=== PATIENT | male | born 1930 | race Caucasian/White ===

== ENCOUNTER 2016-07-24 12:55 | Inpatient (IN) | payer MEDICARE ==
[~2016-07-24] VITALS: Ht 165.1 cm; Wt 69.7 kg
[~2016-07-24 12:55] MED LIST: BENA40TA2 PO; DOCU-27 PO; GABA-586 PO; GLIM1TAB2 PO; GLYB5TAB3 PO; HYDR25CA PO; IPRA3AMP23 IH; LOVA40TA2 PO; METO100T11 PO; TAMS0.4C97 PO
[2016-07-24] MEDS ORDERED: IPRATRPIUM/ALBUTEROL 0.5/2.5MG 3 ML NEBU. NEB ONE (13:15)
[2016-07-24] MEDS ORDERED: methylPREDNISolone SOD SUCC PF 125 MG/2 ML VIAL. IV ONE (13:15)
--- NOTE | 2016-07-24 13:47 | PHYS DOC ---
Past Medical History Past Medical History: Cancer, CHF, Diabetes-Type II, Hypertension Additional Past Surgical Histo: Endoscopy Alcohol Use: None Drug Use: None Adult General Chief Complaint Chief Complaint: SHORTNESS OF BREATH HPI HPI Patient is a 85 year old male brought to the ED from home by EMS with the complaint of short of air. Patient wears oxygen 2 L at home and does have COPD. States he has been very short of breath over the past couple of days. His last nebulizer treatment at home was yesterday because he was too short of breath to walk across the room and get one. He denies recent fever. Cough is baseline. Ankle edema is baseline for him. He said he had a Doppler of his legs recently and found to have no DVT. PCP Dr. Danis Holman Review of Systems Review of Systems Constitutional: Denies fever or chills [] Eyes: Denies change in visual acuity, redness, or eye pain [] HENT: Denies nasal congestion or sore throat [] Respiratory: As in history of present illness Cardiovascular: No chest pain, edema is chronic and baseline GI: Denies abdominal pain, nausea, vomiting, bloody stools or diarrhea [] : Denies dysuria or hematuria [] Musculoskeletal: Denies back pain or joint pain [] Integument: Denies rash or skin lesions [] Neurologic: Denies headache, focal weakness or sensory changes [] Current Medications Current Medications Current Medications Medications (Trade) Dose Ordered Sig/David Start Time Stop Time Status Last Admin Dose Admin Albuterol/ Ipratropium (Duoneb) 3 ml 1X ONCE 07/24/16 13:15 07/24/16 13:16 DC 07/24/16 13:23 3 ML Methylprednisolone Sodium Succinate (Solu-Medrol 125mg Vial) 60 mg 1X ONCE 07/24/16 13:15 07/24/16 13:16 DC 07/24/16 13:35 60 MG Allergies Allergies Allergies Coded Allergies Type Severity Reaction Last Updated Verified No Known Drug Allergies 06/07/13 No Physical Exam Physical Exam Constitutional: Well developed, well nourished, alert, mentating normally, brought in on O2 4 L nasal cannula by EMS HENT: Normocephalic, atraumatic, bilateral external ears normal, nose normal. [ ] Eyes: conjunctiva normal, no discharge. [] Neck: Normal range of motion, no stridor. [] Cardiovascular:Heart rate regular rhythm, no murmur [] Lungs & Thorax: Breath sounds moderately decreased, equal throughout, prolonged expiratory phase, expiratory wheezes throughout Abdomen: Bowel sounds normal, soft, no tenderness, no masses, no pulsatile masses. [] Skin: Warm, dry, no erythema, no rash. [] Extremities: No tenderness, no cyanosis, no clubbing, ROM intact, bilateral ankle edema 1-2+ Neurologic: Alert and oriented X 3, normal motor function, normal sensory function, no focal deficits noted. [] Current Patient Data Vital Signs Vital Signs Date Time Temp Pulse Resp B/P Pulse Ox O2 Delivery O2 Flow Rate FiO2 07/24/16 13:37 53 16 146/65 97 Nasal Cannula 4 07/24/16 12:55 98.4 98.4 Lab Values Laboratory Tests Test 07/24/16 13:30 White Blood Count 3.5x10^3/uL (4.0-11.0) L Red Blood Count 3.40x10^6/uL (4.30-5.70) L Hemoglobin 9.5g/dL (13.0-17.5) L Hematocrit 30.7% (39.0-53.0) L Mean Corpuscular Volume 90fL (79-100) Mean Corpuscular Hemoglobin 28pg (25-35) Mean Corpuscular Hemoglobin Concent 31g/dL (31-37) Red Cell Distribution Width 16.3% (11.5-14.5) H Platelet Count 63x10^3/uL (140-400) L Neutrophils (%) (Auto) 80% (31-73) H Lymphocytes (%) (Auto) 8% (24-48) L Monocytes (%) (Auto) 9% (0-9) Eosinophils (%) (Auto) 2% (0-3) Basophils (%) (Auto) 0% (0-3) Neutrophils # (Auto) 2.8x10^3uL (1.8-7.7) Lymphocytes # (Auto) 0.3x10^3/uL (1.0-4.8) L Monocytes # (Auto) 0.3x10^3/uL (0.0-1.1) Eosinophils # (Auto) 0.1x10^3/uL (0.0-0.7) Basophils # (Auto) 0.0x10^3/uL (0.0-0.2) Sodium Level 146mmol/L (136-145) H Potassium Level 4.9mmol/L (3.5-5.1) Chloride Level 105mmol/L (98-107) Carbon Dioxide Level 38mmol/L (21-32) H Anion Gap 3 (6-14) L Blood Urea Nitrogen 14mg/dL (8-26) Creatinine 0.9mg/dL (0.7-1.3) Estimated GFR (Cockcroft-Gault) 80.0 BUN/Creatinine Ratio 16 (6-20) Glucose Level 111mg/dL (70-99) H Calcium Level 9.0mg/dL (8.5-10.1) Total Bilirubin 1.1mg/dL (0.2-1.0) H Aspartate Amino Transferase (AST) 30U/L (15-37) Alanine Aminotransferase (ALT) 32U/L (16-63) Alkaline Phosphatase 150U/L (46-116) H Creatine Kinase 96U/L (39-308) Creatine Kinase MB (Mass) 3.9ng/mL (0.0-3.6) H Creatine Kinase MB Relative Index 4.1% (0-4) H Troponin I Quantitative < 0.017ng/mL (0.000-0.055) UL-Bxi-R-Type Natriuretic Peptide 905pg/mL (0-449) H Total Protein 6.8g/dL (6.4-8.2) Albumin 2.7g/dL (3.4-5.0) L Albumin/Globulin Ratio 0.7 (1.0-1.7) L Laboratory Tests 07/24/16 13:30 Laboratory Tests 07/24/16 13:30 EKG EKG 12-lead EKG read by me. Sinus rhythm. Heart rate 61. Right bundle branch block. There are no acute ST or T wave changes indicative of ischemia or infarction. No STEMI. 1315 [] Radiology/Procedures Radiology/Procedures Portable chest x-ray read by me. Right lower lobe infiltrate and probable left lower lobe infiltrate. [] Course & Med Decision Making Course & Med Decision Making Pertinent Labs and Imaging studies reviewed. (See chart for details) 85-year-old male with COPD presents by EMS was short of air. He was given a nebulized DuoNeb treatment. His oxygen was turned up from 2-3 to maintain his O2 sats above 90%. He remained somewhat dyspneic after his DuoNeb and increased oxygen. He was given IV Solu-Medrol. Chest x-ray shows a an infiltrate. Blood cultures were ordered and Levaquin was started. Recheck patient [id number]. Patient is sitting up eating lunch wearing 3 L nasal cannula. He is slightly dyspneic with talking but is able to eat. I discussed the plan for admission, IV antibiotics, frequent DuoNeb's, IV steroids. He is agreeable to that plan. I discussed the patient with Dr. Danis Holman who will admit him. I wrote bridge orders. [] Dragon Disclaimer Dragon Disclaimer This electronic medical record was generated, in whole or in part, using a voice recognition dictation system. Departure Departure Impression: Primary Impression: COPD exacerbation Additional Impression: Community acquired pneumonia Disposition: 09 ADMITTED INPATIENT Admitting Physician: Danis Holman Condition: STABLE Referrals: DANIS HOLMAN MD (PCP) Problem Qualifiers RAMONE MACEDO MD Jul 24, 2016 13:47
[2016-07-24 13:54] LABS: BASO % 0 % (0-3); EOS % 2 % (0-3); HEMATOCRIT 30.7 % (39.0-53.0); HEMOGLOBIN 9.5 g/dL (13.0-17.5); LYMPH # 0.3 x10^3/uL (1.0-4.8); LYMPH % 8 % (24-48); MEAN CORPUSCULAR HEMOGLOBIN 28 pg (25-35); MEAN CORPUSCULAR HGB CONC 31 g/dL (31-37); MEAN CORPUSCULAR VOLUME 90 fL (79-100); MONO % 9 % (0-9); NEUT % 80 % (31-73); PLATELET COUNT 63 x10^3/uL (140-400); RED CELL DISTRIBUTION WIDTH 16.3 % (11.5-14.5); WHITE BLOOD COUNT 3.5 x10^3/uL (4.0-11.0)
[2016-07-24 13:57] LABS: CREATININE 0.9 mg/dL (0.7-1.3); POTASSIUM 4.9 mmol/L (3.5-5.1)
[2016-07-24 14:03] LABS: ALBUMIN 2.7 g/dL (3.4-5.0); ALBUMIN/GLOBULIN RATIO 0.7 (1.0-1.7); TOTAL BILIRUBIN 1.1 mg/dL (0.2-1.0); TOTAL PROTEIN 6.8 g/dL (6.4-8.2)
[2016-07-24 14:11] LABS: CKMB INDEX 4.1 % (0-4); CKMB MASS 3.9 ng/mL (0.0-3.6)
--- NOTE | 2016-07-24 15:13 | RAD ---
PORTABLE CHEST 1V Clinical Indication: soa 12 Comparison: July 22, 2015. Technique: Upright portable AP view of the chest is obtained. Findings: There are bibasilar opacities present, right greater than left. Mild interstitial opacities are also suggested within the upper lungs, which may be a component of underlying fibrosis versus overlying edema or infiltrate mild cardiomegaly appears stable. No pneumothorax is seen. Visualized osseous structures and overlying soft tissues demonstrate no acute interval change.. IMPRESSION: Bilateral opacities, may represent infiltrate or edema, underlying fibrosis also considered.
[2016-07-24] MEDS: IPRATRPIUM/ALBUTEROL 0.5/2.5MG 3 ML NEBU. NEB SCH ×2 (15:52→20:52)
[2016-07-24 15:54] VITALS: BP 139/50
[2016-07-24 17:11] VITALS: BP 139/50
[2016-07-24 19:00] VITALS: BP 126/53
[2016-07-24 22:54] VITALS: BP 119/49
[2016-07-25 02:24] VITALS: BP 117/64
[2016-07-25] MEDS: IPRATRPIUM/ALBUTEROL 0.5/2.5MG 3 ML NEBU. NEB SCH ×6 (06:51→17:56)
[2016-07-25 07:00] VITALS: BP 150/58
--- NOTE | 2016-07-25 07:30 | PDOC ---
Provider Note Provider Note [id number] acute on chronic resp fail abnl cxr acute bronchitis vs pneumonia ae of copd see orders TIFFANIE MEJIA MD Jul 25, 2016 07:29
[2016-07-25] MEDS ORDERED: HYDROXYZINE PAMOATE 25 MG CAPSULE PO PRN (08:15)
[2016-07-25] MEDS ORDERED: GLIMEPIRIDE 2 MG TABLET. PO SCH (08:30)
[2016-07-25] MEDS: INSULIN ASPART 300 UNITS/3 ML INSULN.PEN SQ SCH ×3 (08:30→16:48)
--- NOTE | 2016-07-25 08:37 | PDOC ---
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 of MM, results NA- now has mild pancytopenia, high globulin- will do light chain, immunofixation, repeat ct chest- [id number] OLLIE ANGELES MD Jul 25, 2016 08:37
[2016-07-25] MEDS: methylPREDNISolone SOD SUCC PF 40 MG/ML VIAL. IV SCH ×2 (08:48→20:37)
--- NOTE | 2016-07-25 08:53 | CONS ---
DATE OF CONSULTATION: 07/25/2016 I was asked to see this 85-year-old gentleman for [id number] respiratory failure, acute exacerbation of chronic obstructive pulmonary disease, acute bronchitis versus pneumonia. HISTORY OF PRESENT ILLNESS: He has history of 24-rwpo-pamf smoking, stopped smoking 5 years ago. He has COPD and he is on oxygen 2 liters per minute via nasal cannula continuously. He has had increased shortness of breath for the past few days. He has cough with white sputum production. He is a poor historian. He denies chest pain. He has had wheezing. He has runny nose, but denies gastroesophageal reflux symptoms. ALLERGIES: No known drug allergies. MEDICATIONS: The patient was given Solu-Medrol, DuoNeb and antibiotic in the Emergency Room. SOCIAL HISTORY: History of 20-rdiu-yjzf smoking, stopped smoking 5 years ago. FAMILY HISTORY: Positive for hypertension. PAST MEDICAL HISTORY: COPD, chronic respiratory failure, CHF, diabetes mellitus and hypertension. REVIEW OF SYSTEMS: As mentioned as above. His urine has been darker. Other systems are otherwise negative. PHYSICAL EXAMINATION: GENERAL: This is a well-developed gentleman. VITAL SIGNS: His O2 saturation on 4 liters of oxygen is 96%, respiratory rate 20, heart rate 82, blood pressure 160/90, temperature 98.6. HEENT: Normocephalic, atraumatic. Pupils equal, round, reactive to light. Throat is clear. Nose is clear. NECK: There is no JVD, lymphadenopathy or thyromegaly. CARDIOVASCULAR: Regular rate and rhythm. PMI is not displaced. CHEST: Inspection is normal. LUNGS: There are bibasilar crackles end expiratory wheezing. ABDOMEN: Soft. Bowel sounds are good. There is no mass. EXTREMITIES: There is trace edema. LYMPHATICS: There is no lymphadenopathy. SKIN: Chronic changes. NEUROLOGIC: He is alert. LABORATORY DATA: I reviewed the following lab data. Chest x-ray shows bilateral infiltrate, mostly right lower lobe infiltrate. Sodium 146, potassium 4.9, chloride 105, CO2 of 38, glucose 111, BUN 14, creatinine 0.9. Troponin less than 0.01. BNP 905. Total bili 1.1. AST 30, ALT 32, alkaline phosphatase 150. IMPRESSION: 1. Acute on chronic respiratory failure, multifactorial in etiology. 2. Acute exacerbation of chronic obstructive pulmonary disease. 3. Acute bronchitis versus pneumonia. 4. ?UTI. 5. Diabetes mellitus. 6. Hypertension. PLAN AND RECOMMENDATIONS: 1. Titrate FiO2 to keep O2 saturation 92%. 2. Start bronchodilator. 3. Start Levaquin 500 mg iv daily. 4. Urine micro and culture. 5. Start Solu-Medrol 40 mg IV every 12 hours. 6. Lovenox for DVT prophylaxis. 7. Protonix for stress ulcer prophylaxis. 8. Monitor respiratory status very closely. 9. The findings and recommendations were discussed with the patient and RN. I have answered all of the patient's questions. He understood and agreed to proceed with the plan. Thank you very much for allowing me to participate in care of this very nice gentleman. Alessandro WRIGHT JOB#: [id number] / [id number] KIRSTIE
[2016-07-25] MEDS: GABAPENTIN 300 MG CAPSULE. PO SCH ×3 (08:54→20:37)
[2016-07-25] MEDS: METOPROLOL SUCC 24HR ER 100 MG TAB.ER.24H. PO SCH (08:55)
[2016-07-25] MEDS: DOCUSATE SODIUM 100 MG CAPSULE. PO SCH (08:55)
[2016-07-25] MEDS: TAMSULOSIN 0.4 MG CAP.ER.24H. PO SCH (08:55)
[2016-07-25] MEDS ORDERED: BENAZEPRIL HCL 40 MG PO SCH (09:00)
--- NOTE | 2016-07-25 09:21 | HP ---
ADMIT DATE: CHIEF COMPLAINT: Shortness of breath. HISTORY OF PRESENT ILLNESS: An 85-year-old white male with known COPD, came in with increasing shortness of breath and mild hypoxia. He had low grade fever and chest x-ray showed evidence of possible right lower lobe pneumonia. He is not able to provide good history. He is somewhat confused at this time. 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 Peña. Last CT scan that I can find record that was 2013 and was felt to be unremarkable and no known recurrence since then. In 2013 he had a bone marrow analysis for the question of multiple myeloma, but the results are not available through this record and apparently it was not found to have myeloma. This test was done because of high globulin fraction and low platelets, both of which are still present. PAST MEDICAL HISTORY: MEDICATIONS: Listed per the chart including metoprolol and benazepril, but did not know how compliant he is. ALLERGIES: No known drug allergies. Other serious known medical problems except for BPH. He was treated for C. diff at [facility] about 2-3 months ago with no recurrence known since then. FAMILY HISTORY: Unremarkable. SOCIAL HISTORY: Did not know if he is living with himself ____ has family in the area as he is not able to provide a good history at this time. REVIEW OF SYSTEMS: No other known problems. OBJECTIVE: ENT: All within normal limits except for mild pallor. NECK: No bruits, nodes, masses or thyroid enlargement. LUNGS: Decreased breath sounds. No wheezing or tachypnea, hyperresonant lungs bilaterally to percussion. CARDIOVASCULAR: Regular rate. No irregular beat or murmur. ABDOMEN: Soft, benign and nontender. EXTREMITIES: Good radial pulses, decreased pedal pulses. No edema. SKIN: Skin turgor appears to be decreased. NEUROLOGIC: Physiologic, irritable, but nonfocal, oriented x 4. ASSESSMENT: 1. Chronic obstructive pulmonary disease with secondary exacerbation, likely secondary to low grade pneumonia. 2. 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 Last CT after radiation therapy in 2013. 3. Pancytopenia, which appears to be mildly progressive with lower white count and anemia now, which was ____ present 2 years ago. Multifactorial must consider indolent multiple myeloma or myelodysplastic syndrome. 4. High globulin levels again a question of multiple myeloma. 5. Poor protein calorie state with malnutrition, mild present. PLAN: Continue Rocephin and we will hold steroids for now as he is low diabetic. Light chain analysis, immunofixation, CT scan ordered and he is a DNR. OLLIE ANGELES MD DR: SHEA/markie JOB#: [id number] / [id number]
--- NOTE | 2016-07-25 09:48 | EKG ---
[facility] [address] [place] [address] Test Date: 2016-07-24 Test Time: 13:15:18 Pat Name: DANIELLE RÍOS Department: Room: Gender: M Dental Professional: : 1930 Requested By: RAMONE MACEDO Order Number: [id number] Reading MD: Measurements Intervals [place] Rate: 61 P: 41 MT: 178 QRS: -27 QRSD: 128 T: 62 QT: 446 QTc: 455 Interpretive Statements SINUS RHYTHM ATRIAL PREMATURE COMPLEX(ES) RIGHT BUNDLE BRANCH BLOCK ABNORMAL ECG RI6.01 No previous ECG available for comparison
[2016-07-25 11:00] VITALS: BP 143/45
[2016-07-25 15:00] VITALS: BP 137/46
[2016-07-25] MEDS ORDERED: CEFTRIAXONE SODIUM 1 GM in IV NORMAL SALINE 50ML 50 ML IV SCH (15:30)
[2016-07-25 19:00] VITALS: BP 165/59
[2016-07-25 19:05] LABS: BILIRUBIN,URINE NEGATIVE (NEG); GLUCOSE,URINE NEGATIVE (NEG); NITRITE,URINE NEGATIVE (NEG); PROTEIN,URINE 30 mg/dL (NEG-TRACE); UROBILINOGEN,URINE 0.2 mg/dL (0.2 mg/dL)
[2016-07-25 19:21] LABS: BACTERIA,URINE 0 /HPF (0-FEW); WBC,URINE 0 /HPF (0-4)
[2016-07-25] MEDS: ATORVASTATIN CALCIUM 10 MG TABLET. PO SCH (20:37)
[2016-07-25 23:00] VITALS: BP 122/49
[2016-07-26 07:00] VITALS: BP 135/68
[2016-07-26] MEDS ORDERED: CONTRAST GIVEN MC PRN (07:00)
[2016-07-26] MEDS: IPRATRPIUM/ALBUTEROL 0.5/2.5MG 3 ML NEBU. NEB SCH ×4 (07:12→20:18)
[2016-07-26] MEDS ORDERED: IOHEXOL 300 MG/ML 75 ML VIAL IV ONE (07:15)
[2016-07-26] MEDS: INSULIN ASPART 300 UNITS/3 ML INSULN.PEN SQ SCH ×3 (08:00→18:06)
--- NOTE | 2016-07-26 08:15 | PDOC ---
Provider Note Provider Note vss, no temp, feels better , no sputum- has bibasilar rales, only scant wheezes - ct pending re priod CA- labs re ? MM, pancytopenia pending as well- states he was in [facility] recently for "black styool" but unable to relate tests or etiolgy- at risk for bleed re low plats- will get mr from [facility], reduce steroids now , po 07/27 OLLIE ANGELES MD Jul 26, 2016 08:15
[2016-07-26] MEDS ORDERED: GLIMEPIRIDE 2 MG TABLET. PO SCH (08:30)
[2016-07-26] MEDS: METOPROLOL SUCC 24HR ER 100 MG TAB.ER.24H. PO SCH (09:03)
[2016-07-26] MEDS: GABAPENTIN 300 MG CAPSULE. PO SCH ×3 (09:04→20:48)
[2016-07-26] MEDS: TAMSULOSIN 0.4 MG CAP.ER.24H. PO SCH (09:04)
[2016-07-26] MEDS: DOCUSATE SODIUM 100 MG CAPSULE. PO SCH (09:04)
--- NOTE | 2016-07-26 09:05 | RAD ---
Indication history of small cell cancer. Radiation left upper lobe. Follow-up. Contrast imaging through the chest was performed. Approximately 75 cc of Omnipaque 300 was administered intravenously. Comparison is made to the most recent examination available December 26, 2013 Imaging through the upper abdomen shows no acute finding. Renal cysts are noted. There is a small amount of perihepatic and perisplenic fluid. The thoracic aorta appears unremarkable. There is coronary artery calcification. There is no significant hilar or mediastinal adenopathy. There are small to moderate bilateral pleural effusions. Some of the right pleural fluid may be loculated. There are interstitial changes in the left upper lobe which are likely postradiation induced and key account representative of fibrosis. There is a slightly lobulated 1.7 cm parenchymal mass in the left upper lobe suggesting either recurrent or primary neoplastic disease. IMPRESSION: 1.7 cm parenchymal mass in the left upper lobe suggesting either recurrent or primary neoplastic disease. Small to moderate bilateral pleural effusions some of the right pleural fluid may be loculated. Small amount of abdominal ascites PQRS Compliance Statement: One or more of the following individualized dose reduction techniques were utilized for this examination: 1. Automated exposure control 2. Adjustment of the mA and/or kV according to patient size 3. Use of iterative reconstruction technique
[2016-07-26] MEDS ORDERED: methylPREDNISolone SOD SUCC PF 40 MG/ML VIAL. IV SCH (10:00)
[2016-07-26 11:08] VITALS: BP 144/58
[2016-07-26 11:20] LABS: HEMATOCRIT 30.9 % (39.0-53.0); HEMOGLOBIN 9.9 g/dL (13.0-17.5); RED BLOOD COUNT 3.55 x10^6/uL (4.30-5.70); RED CELL DISTRIBUTION WIDTH 16.2 % (11.5-14.5); WHITE BLOOD COUNT 5.4 x10^3/uL (4.0-11.0)
[2016-07-26 15:01] VITALS: BP 131/58
--- NOTE | 2016-07-26 17:20 | PDOC ---
PULMONARY PROGRESS NOTES Subjective pt not more soa Vitals Vital Signs Date Time Temp Pulse Resp B/P Pulse Ox O2 Delivery O2 Flow Rate FiO2 07/26/16 15:15 95 Nasal Cannula 2.0 07/26/16 15:01 98.2 65 17 131/58 98.2 ROS: No Nausea, No Chest Pain, No Abdominal Pain, No Increase Cough General: Alert Lungs: Clear Cardiovascular: S1, S2 Abdomen: Soft Neuro Exam: Alert Extremities: No Edema Skin: Warm Labs Laboratory Tests Test 07/24/16 20:44 07/25/16 07:52 07/25/16 11:08 07/25/16 16:46 Glucose (Fingerstick) 169mg/dL (70-99) 156mg/dL (70-99) 91mg/dL (70-99) 88mg/dL (70-99) Test 07/25/16 18:45 07/25/16 20:55 07/26/16 07:16 07/26/16 11:16 Urine Collection Type Unknown Urine Color Yellow Urine Clarity Clear Urine pH 7.0 Urine Specific [place] 1.015 Urine Protein 30mg/dL (NEG-TRACE) Urine Glucose (UA) Negativemg/dL (NEG) Urine Ketones (Stick) Negativemg/dL (NEG) Urine Blood Negative (NEG) Urine Nitrite Negative (NEG) Urine Bilirubin Negative (NEG) Urine Urobilinogen Dipstick 0.2mg/dL (0.2 mg/dL) Urine Leukocyte Esterase Negative (NEG) Urine RBC 1-2/HPF (0-2) Urine WBC 0/HPF (0-4) Urine Bacteria 0/HPF (0-FEW) Urine Hyaline Casts Few/HPF Glucose (Fingerstick) 73mg/dL (70-99) 130mg/dL (70-99) White Blood Count 5.4x10^3/uL (4.0-11.0) Red Blood Count 3.55x10^6/uL (4.30-5.70) Hemoglobin 9.9g/dL (13.0-17.5) Hematocrit 30.9% (39.0-53.0) Mean Corpuscular Volume 87fL (79-100) Mean Corpuscular Hemoglobin 28pg (25-35) Mean Corpuscular Hemoglobin Concent 32g/dL (31-37) Red Cell Distribution Width 16.2% (11.5-14.5) Platelet Count 65x10^3/uL (140-400) Test 07/26/16 11:18 07/26/16 16:07 Glucose (Fingerstick) 99mg/dL (70-99) 171mg/dL (70-99) Laboratory Tests Test 07/25/16 18:45 07/25/16 20:55 07/26/16 07:16 07/26/16 11:16 Urine Collection Type Unknown Urine Color Yellow Urine Clarity Clear Urine pH 7.0 Urine Specific [place] 1.015 Urine Protein 30mg/dL (NEG-TRACE) Urine Glucose (UA) Negativemg/dL (NEG) Urine Ketones (Stick) Negativemg/dL (NEG) Urine Blood Negative (NEG) Urine Nitrite Negative (NEG) Urine Bilirubin Negative (NEG) Urine Urobilinogen Dipstick 0.2mg/dL (0.2 mg/dL) Urine Leukocyte Esterase Negative (NEG) Urine RBC 1-2/HPF (0-2) Urine WBC 0/HPF (0-4) Urine Bacteria 0/HPF (0-FEW) Urine Hyaline Casts Few/HPF Glucose (Fingerstick) 73mg/dL (70-99) 130mg/dL (70-99) White Blood Count 5.4x10^3/uL (4.0-11.0) Red Blood Count 3.55x10^6/uL (4.30-5.70) Hemoglobin 9.9g/dL (13.0-17.5) Hematocrit 30.9% (39.0-53.0) Mean Corpuscular Volume 87fL (79-100) Mean Corpuscular Hemoglobin 28pg (25-35) Mean Corpuscular Hemoglobin Concent 32g/dL (31-37) Red Cell Distribution Width 16.2% (11.5-14.5) Platelet Count 65x10^3/uL (140-400) Test 07/26/16 11:18 07/26/16 16:07 Glucose (Fingerstick) 99mg/dL (70-99) 171mg/dL (70-99) Medications Active Scripts Medications Dose Route/Sig Days Date Category Glimepiride 1 Mg Tablet 1 Mg PO DAILY 11/28/13 Reported Flomax (Tamsulosin Hcl) 0.4 Mg Cap.er.24h 0.4 Mg PO DAILY 06/07/13 Reported Metoprolol Succinate ( Xl ) (Metoprolol Succinate) 100 Mg Tab.er.24h 100 Mg PO DAILY 06/07/13 Reported Lovastatin 40 Mg Tablet 40 Mg PO HS 06/07/13 Reported Vistaril (Hydroxyzine Pamoate) 25 Mg Capsule 25 Mg PO HS PRN 06/07/13 Reported Gabapentin 300 Mg Capsule 300 Mg PO TID 06/07/13 Reported Duoneb 0.5 Mg-3 Mg/3 Ml Soln (Ipratropium/Albuterol Sulfate) 3 Ml Ampul.neb 3 Ml IH QID PRN 06/07/13 Reported Colace (Docusate Sodium) 100 Mg Capsule 100 Mg PO DAILY 06/07/13 Reported Benazepril Hcl 40 Mg Tablet 40 Mg PO DAILY 06/07/13 Reported Impression . 1. Acute on chronic respiratory failure, multifactorial in etiology. 2. Acute exacerbation of chronic obstructive pulmonary disease. 3. Acute bronchitis versus pneumonia. 4. ?UTI. 5. Diabetes mellitus. 6. Hypertension. 7. H/O small cell CA s/p XRT, INDIRA 8. New mass in INDIRA, possible recurrence vs new primary CT chest 1.7 cm parenchymal mass in the left upper lobe suggesting either recurrent or primary neoplastic disease. Small to moderate bilateral pleural effusions some of the right pleural fluid may be loculated. Small amount of abdominal ascites Plan . continue antibx will need rad onco conslut 02 ELIO Dial MD Jul 26, 2016 17:20
[2016-07-26 19:00] VITALS: BP 151/63
[2016-07-26] MEDS: ATORVASTATIN CALCIUM 10 MG TABLET. PO SCH (20:48)
[2016-07-26] MEDS: DEXTROSE 50% 25 GM / 50ML DISP.SYRIN. IV PRN ×2 (21:18→21:20)
[2016-07-26 23:00] VITALS: BP 107/40
[2016-07-27 05:48] LABS: HEMATOCRIT 31.3 % (39.0-53.0); HEMOGLOBIN 10.1 g/dL (13.0-17.5); RED BLOOD COUNT 3.59 x10^6/uL (4.30-5.70); RED CELL DISTRIBUTION WIDTH 16.5 % (11.5-14.5); WHITE BLOOD COUNT 6.2 x10^3/uL (4.0-11.0)
[2016-07-27 07:00] VITALS: BP 134/59
[2016-07-27] MEDS: IPRATRPIUM/ALBUTEROL 0.5/2.5MG 3 ML NEBU. NEB SCH ×3 (07:44→15:19)
--- NOTE | 2016-07-27 08:12 | PDOC ---
Provider Note Provider Note vss, no temp- glucose low despite steroids, a1c 5.3 so dc dm meds - wbc up, myeloma labs pending, platelets still low- mass INDIRA noted rad onc to see- po meds now OLLIE ANGELES MD Jul 27, 2016 08:12
[2016-07-27] MEDS ORDERED: LEVOFLOXACIN 250 MG TABLET. PO SCH (09:00)
[2016-07-27] MEDS ORDERED: PREDNISONE 20 MG TABLET PO SCH (09:00)
[2016-07-27] MEDS: TAMSULOSIN 0.4 MG CAP.ER.24H. PO SCH (09:22)
[2016-07-27] MEDS: GABAPENTIN 300 MG CAPSULE. PO SCH ×2 (09:22→15:31)
[2016-07-27] MEDS: METOPROLOL SUCC 24HR ER 100 MG TAB.ER.24H. PO SCH (09:23)
[2016-07-27] MEDS: DOCUSATE SODIUM 100 MG CAPSULE. PO SCH (09:25)
--- NOTE | 2016-07-27 10:39 | PDOC ---
PROGRESS NOTES Subjective Subjective Glen Canseco is known to us. 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 He received palliative external Radiation, in August-September 2012. He was last seen in Radiation Department, in December 2013, at which time his chest ct was stable. He now admitted with chronic respiratory failure, exacerbation of COPD, acute bronchitis and to rule out pneumonia. Chest x-ray done on07/24/16 has shown bilateral opacities may be representing infiltrate or edema and underlying fibrosis.CT chest on 07/26/16 showed 1.7cm mass in the left upper lobe most likely recurrent or primary neoplastic disease, bilateral small pleural effusion. Today as seen in his room 550, he is comfortable with continuous O2 inhalation. He does look anemic. On auscultation, bibasilar crepitations are heard. Heart with RRR. Plan: work ups in progress. We will follow the patient with you. Objective Objective Vital Signs Date Time Temp Pulse Resp B/P Pulse Ox O2 Delivery O2 Flow Rate FiO2 07/27/16 09:23 74 134/59 07/27/16 07:46 96 Nasal Cannula 2.0 07/27/16 07:00 97.8 18 97.8 Intake and Output 07/27/16 07:00 Intake Total 860 ml Output Total 1100 ml Balance -240 ml Intake Oral 860 ml Output Urine Total 1100 ml Assessment Assessment Problems Medical Problems: (1) Community acquired pneumonia Status: Acute (2) COPD exacerbation Status: Acute Comment Review of Relevant I have reviewed the following items lizeth (where applicable) has been applied. Labs Laboratory Tests Test 07/25/16 11:08 07/25/16 16:46 07/25/16 18:45 07/25/16 20:55 Glucose (Fingerstick) 91mg/dL (70-99) 88mg/dL (70-99) 73mg/dL (70-99) Urine Collection Type Unknown Urine Color Yellow Urine Clarity Clear Urine pH 7.0 Urine Specific [place] 1.015 Urine Protein 30mg/dL (NEG-TRACE) Urine Glucose (UA) Negativemg/dL (NEG) Urine Ketones (Stick) Negativemg/dL (NEG) Urine Blood Negative (NEG) Urine Nitrite Negative (NEG) Urine Bilirubin Negative (NEG) Urine Urobilinogen Dipstick 0.2mg/dL (0.2 mg/dL) Urine Leukocyte Esterase Negative (NEG) Urine RBC 1-2/HPF (0-2) Urine WBC 0/HPF (0-4) Urine Bacteria 0/HPF (0-FEW) Urine Hyaline Casts Few/HPF Test 07/26/16 07:16 07/26/16 11:16 07/26/16 11:18 07/26/16 16:07 Glucose (Fingerstick) 130mg/dL (70-99) 99mg/dL (70-99) 171mg/dL (70-99) White Blood Count 5.4x10^3/uL (4.0-11.0) Red Blood Count 3.55x10^6/uL (4.30-5.70) Hemoglobin 9.9g/dL (13.0-17.5) Hematocrit 30.9% (39.0-53.0) Mean Corpuscular Volume 87fL (79-100) Mean Corpuscular Hemoglobin 28pg (25-35) Mean Corpuscular Hemoglobin Concent 32g/dL (31-37) Red Cell Distribution Width 16.2% (11.5-14.5) Platelet Count 65x10^3/uL (140-400) Test 07/26/16 21:14 07/26/16 21:39 07/27/16 04:48 07/27/16 07:05 Glucose (Fingerstick) 38mg/dL (70-99) 150mg/dL (70-99) 52mg/dL (70-99) White Blood Count 6.2x10^3/uL (4.0-11.0) Red Blood Count 3.59x10^6/uL (4.30-5.70) Hemoglobin 10.1g/dL (13.0-17.5) Hematocrit 31.3% (39.0-53.0) Mean Corpuscular Volume 87fL (79-100) Mean Corpuscular Hemoglobin 28pg (25-35) Mean Corpuscular Hemoglobin Concent 32g/dL (31-37) Red Cell Distribution Width 16.5% (11.5-14.5) Platelet Count 79x10^3/uL (140-400) Test 07/27/16 07:35 Glucose (Fingerstick) 90mg/dL (70-99) Laboratory Tests Test 07/26/16 11:16 07/26/16 11:18 07/26/16 16:07 07/26/16 21:14 White Blood Count 5.4x10^3/uL (4.0-11.0) Red Blood Count 3.55x10^6/uL (4.30-5.70) Hemoglobin 9.9g/dL (13.0-17.5) Hematocrit 30.9% (39.0-53.0) Mean Corpuscular Volume 87fL (79-100) Mean Corpuscular Hemoglobin 28pg (25-35) Mean Corpuscular Hemoglobin Concent 32g/dL (31-37) Red Cell Distribution Width 16.2% (11.5-14.5) Platelet Count 65x10^3/uL (140-400) Glucose (Fingerstick) 99mg/dL (70-99) 171mg/dL (70-99) 38mg/dL (70-99) Test 07/26/16 21:39 07/27/16 04:48 07/27/16 07:05 07/27/16 07:35 Glucose (Fingerstick) 150mg/dL (70-99) 52mg/dL (70-99) 90mg/dL (70-99) White Blood Count 6.2x10^3/uL (4.0-11.0) Red Blood Count 3.59x10^6/uL (4.30-5.70) Hemoglobin 10.1g/dL (13.0-17.5) Hematocrit 31.3% (39.0-53.0) Mean Corpuscular Volume 87fL (79-100) Mean Corpuscular Hemoglobin 28pg (25-35) Mean Corpuscular Hemoglobin Concent 32g/dL (31-37) Red Cell Distribution Width 16.5% (11.5-14.5) Platelet Count 79x10^3/uL (140-400) Microbiology 07/24/16 Blood Culture - Preliminary, Resulted NO GROWTH AFTER 2 DAYS Medications Current Medications Albuterol/ Ipratropium (Duoneb) 3 ml 1X ONCE NEB Last administered on t 13:23; Start 07/24/16 at 13:15; Stop 07/24/16 at 13:16; Status DC Methylprednisolone Sodium Succinate 60 mg 60 mg 1X ONCE IV Last administered on 07/24/16 13:35; Start 07/24/16 at 13:15; Stop 07/24/16 at 13:16; Status DC Levofloxacin/ Dextrose (LEVAQUIN 750mg PREMIX) 150 ml @ 100 mls/hr 1X ONCE IV Last administered on 07/24/16 15:28; Start 07/24/16 at 14:45; Stop 07/24/16 at 16:14; Status DC Albuterol/ Ipratropium 3 ml 3 ml RTQID NEB Last administered on 07/25/16 10:46 ; Start 07/24/16 at 16:00; Stop 07/25/16 at 10:55; Status DC Levofloxacin/ Dextrose (LEVAQUIN 500mg PREMIX) 100 ml @ 100 mls/hr Q24H IV Last administered on 07/26/16 15:28; Start 07/25/16 at 14:00; Stop 07/27/16 at 08:10; Status DC Methylprednisolone Sodium Succinate (Solu-Medrol 40mg Vial) 40 mg Q12HR IV Last administered on 07/25/16 20:37; Start 07/25/16 at 09:00; Stop 07/26/16 at 08:13; Status DC Albuterol/ Ipratropium (Duoneb) 3 ml RTQID NEB Last administered on 07/27/16 07:44; Start 07/25/16 at 08:00 Docusate Sodium (Colace) 100 mg DAILY PO Last administered on 07/27/16 09:25; Start 07/25/16 at 09:00 Hydroxyzine Pamoate (Vistaril) 25 mg PRN QHS PRN PO ITCHING; Start 07/25/16 at 08:15 Metoprolol Succinate (Toprol Xl) 100 mg DAILY PO Last administered on 09:23; Start 07/25/16 at 09:00 Tamsulosin HCl (Flomax) 0.4 mg DAILY PO Last administered on 07/27/16 09:22; Start 07/25/16 at 09:00 Non-Formulary Medication 40 mg DAILY PO ; Start 07/25/16 at 09:00; Stop at 09:00; Status DC Gabapentin (Neurontin) 300 mg TID PO Last administered on 07/27/16 09:22; Start 07/25/16 at 09:00 Glimepiride (Amaryl) 1 mg DAILY08 PO Last administered on 07/25/16 08:54; Start 07/25/16 at 08:30; Stop 07/26/16 at 08:03; Status DC Atorvastatin Calcium (Lipitor) 10 mg QHS PO Last administered on 07/26/16 20: 48; Start 07/25/16 at 21:00 Insulin Aspart (Novolog) 0-7 UNITS TIDWMEALS SQ Last administered on 07/26/16 18:06; Start 07/25/16 at 08:30; Stop 07/26/16 at 22:26; Status DC Dextrose 12.5 gm 12.5 gm PRN Q15MIN PRN IV SEE COMMENTS Last administered on 21:18; Start 07/25/16 at 08:30 Ceftriaxone Sodium/Sodium Chloride (Rocephin/Iv Sodium Chloride 0.9% 50ml) 50 ml @ 100 mls/hr Q24H IV Last administered on 07/25/16 15:30; Start 07/25/16 at 15:30; Stop 07/26/16 at 08:03; Status DC Iohexol (Omnipaque 300 Mg/ml) 75 ml 1X ONCE IV Last administered on 07/26/16 07:35; Start 07/26/16 at 07:15; Stop 07/26/16 at 07:16; Status DC Info (Do NOT chart on this entry -- for MONITORING) 1 each PRN DAILY PRN MC SEE COMMENTS; Start 07/26/16 at 07:00; Stop 07/28/16 at 06:59 Glimepiride (Amaryl) 0.5 mg DAILY08 PO Last administered on 07/26/16 09:03; Start 07/26/16 at 08:30; Stop 07/26/16 at 22:26; Status DC Methylprednisolone Sodium Succinate (Solu-Medrol 40mg Vial) 40 mg DAILY10 IV Last administered on 07/26/16 09:16; Start 07/26/16 at 10:00; Stop 07/27/16 at 08:10; Status DC Prednisone (Prednisone) 30 mg DAILY PO Last administered on 07/27/16 09:22; Start 07/27/16 at 09:00 Levofloxacin (Levaquin) 250 mg DAILY06 PO Last administered on 07/27/16 09:22 ; Start 07/27/16 at 09:00 Active Scripts Active Reported Glimepiride 1 Mg Tablet 1 Mg PO DAILY Flomax (Tamsulosin Hcl) 0.4 Mg Cap.er.24h 0.4 Mg PO DAILY Metoprolol Succinate ( Xl ) (Metoprolol Succinate) 100 Mg Tab.er.24h 100 Mg PO DAILY Lovastatin 40 Mg Tablet 40 Mg PO HS Vistaril (Hydroxyzine Pamoate) 25 Mg Capsule 25 Mg PO HS PRN Gabapentin 300 Mg Capsule 300 Mg PO TID Duoneb 0.5 Mg-3 Mg/3 Ml Soln (Ipratropium/Albuterol Sulfate) 3 Ml Ampul.neb 3 Ml IH QID PRN Colace (Docusate Sodium) 100 Mg Capsule 100 Mg PO DAILY Benazepril Hcl 40 Mg Tablet 40 Mg PO DAILY Vitals/I & O Vital Sign - Last 24 Hours 07/26/16 07/26/16 07/26/16 07/26/16 11:08 11:11 15:01 15:15 Temp 98.1 98.2 98.1 98.2 Pulse 62 65 Resp 18 17 B/P 144/58 131/58 Pulse Ox 100 95 96 95 O2 Delivery Nasal Cannula Nasal Cannula Nasal Cannula Nasal Cannula O2 Flow Rate 2.5 2.0 3.0 2.0 07/26/16 07/26/16 07/26/16 07/26/16 19:00 20:00 20:19 23:00 Temp 98.4 98.1 98.4 98.1 Pulse 61 75 Resp 20 20 B/P 151/63 107/40 Pulse Ox 99 97 93 O2 Delivery Nasal Cannula Nasal Cannula Nasal Cannula Nasal Cannula O2 Flow Rate 2.0 2.0 2.0 2.0 07/27/16 07/27/16 07/27/16 07:00 07:46 09:23 Temp 97.8 97.8 Pulse 74 74 Resp 18 B/P 134/59 134/59 Pulse Ox 97 96 O2 Delivery Nasal Cannula Nasal Cannula O2 Flow Rate 3.0 2.0 Intake and Output 07/26/16 07/26/16 07/27/16 15:00 23:00 07:00 Intake Total 360 ml 500 ml Output Total 700 ml 400 ml Balance -340 ml 100 ml MIRNA ALTAMIRANO MD Jul 27, 2016 10:39
[2016-07-27 10:43] VITALS: BP 158/55
[2016-07-27 14:38] VITALS: BP 111/51
[2016-07-27 15:25] LABS: KAPPA LAMBDA RATIO 4.61 (0.26-1.65)
--- NOTE | 2016-07-27 15:34 | PDOC ---
PULMONARY PROGRESS NOTES Subjective pt not more soa Vitals Vital Signs Date Time Temp Pulse Resp B/P Pulse Ox O2 Delivery O2 Flow Rate FiO2 07/27/16 15:19 Nasal Cannula 2.0 07/27/16 14:38 98.2 69 18 111/51 99 98.2 ROS: No Nausea, No Chest Pain, No Abdominal Pain, No Increase Cough General: Alert Lungs: Clear Cardiovascular: S1, S2 Abdomen: Soft Neuro Exam: Alert Extremities: No Edema Skin: Warm Labs Laboratory Tests Test 07/25/16 16:46 07/25/16 18:45 07/25/16 20:55 07/26/16 07:16 Glucose (Fingerstick) 88mg/dL (70-99) 73mg/dL (70-99) 130mg/dL (70-99) Urine Collection Type Unknown Urine Color Yellow Urine Clarity Clear Urine pH 7.0 Urine Specific [place] 1.015 Urine Protein 30mg/dL (NEG-TRACE) Urine Glucose (UA) Negativemg/dL (NEG) Urine Ketones (Stick) Negativemg/dL (NEG) Urine Blood Negative (NEG) Urine Nitrite Negative (NEG) Urine Bilirubin Negative (NEG) Urine Urobilinogen Dipstick 0.2mg/dL (0.2 mg/dL) Urine Leukocyte Esterase Negative (NEG) Urine RBC 1-2/HPF (0-2) Urine WBC 0/HPF (0-4) Urine Bacteria 0/HPF (0-FEW) Urine Hyaline Casts Few/HPF Test 07/26/16 11:16 07/26/16 11:18 07/26/16 16:07 07/26/16 21:14 White Blood Count 5.4x10^3/uL (4.0-11.0) Red Blood Count 3.55x10^6/uL (4.30-5.70) Hemoglobin 9.9g/dL (13.0-17.5) Hematocrit 30.9% (39.0-53.0) Mean Corpuscular Volume 87fL (79-100) Mean Corpuscular Hemoglobin 28pg (25-35) Mean Corpuscular Hemoglobin Concent 32g/dL (31-37) Red Cell Distribution Width 16.2% (11.5-14.5) Platelet Count 65x10^3/uL (140-400) Glucose (Fingerstick) 99mg/dL (70-99) 171mg/dL (70-99) 38mg/dL (70-99) Test 07/26/16 21:39 07/27/16 04:48 07/27/16 07:05 07/27/16 07:35 Glucose (Fingerstick) 150mg/dL (70-99) 52mg/dL (70-99) 90mg/dL (70-99) White Blood Count 6.2x10^3/uL (4.0-11.0) Red Blood Count 3.59x10^6/uL (4.30-5.70) Hemoglobin 10.1g/dL (13.0-17.5) Hematocrit 31.3% (39.0-53.0) Mean Corpuscular Volume 87fL (79-100) Mean Corpuscular Hemoglobin 28pg (25-35) Mean Corpuscular Hemoglobin Concent 32g/dL (31-37) Red Cell Distribution Width 16.5% (11.5-14.5) Platelet Count 79x10^3/uL (140-400) Test 07/27/16 11:00 07/27/16 12:03 Glucose (Fingerstick) 67mg/dL (70-99) 88mg/dL (70-99) Laboratory Tests Test 07/26/16 16:07 07/26/16 21:14 07/26/16 21:39 07/27/16 04:48 Glucose (Fingerstick) 171mg/dL (70-99) 38mg/dL (70-99) 150mg/dL (70-99) White Blood Count 6.2x10^3/uL (4.0-11.0) Red Blood Count 3.59x10^6/uL (4.30-5.70) Hemoglobin 10.1g/dL (13.0-17.5) Hematocrit 31.3% (39.0-53.0) Mean Corpuscular Volume 87fL (79-100) Mean Corpuscular Hemoglobin 28pg (25-35) Mean Corpuscular Hemoglobin Concent 32g/dL (31-37) Red Cell Distribution Width 16.5% (11.5-14.5) Platelet Count 79x10^3/uL (140-400) Test 07/27/16 07:05 07/27/16 07:35 07/27/16 11:00 07/27/16 12:03 Glucose (Fingerstick) 52mg/dL (70-99) 90mg/dL (70-99) 67mg/dL (70-99) 88mg/dL (70-99) Medications Active Scripts Medications Dose Route/Sig Days Date Category Glimepiride 1 Mg Tablet 1 Mg PO DAILY 11/28/13 Reported Flomax (Tamsulosin Hcl) 0.4 Mg Cap.er.24h 0.4 Mg PO DAILY 06/07/13 Reported Metoprolol Succinate ( Xl ) (Metoprolol Succinate) 100 Mg Tab.er.24h 100 Mg PO DAILY 06/07/13 Reported Lovastatin 40 Mg Tablet 40 Mg PO HS 06/07/13 Reported Vistaril (Hydroxyzine Pamoate) 25 Mg Capsule 25 Mg PO HS PRN 06/07/13 Reported Gabapentin 300 Mg Capsule 300 Mg PO TID 06/07/13 Reported Duoneb 0.5 Mg-3 Mg/3 Ml Soln (Ipratropium/Albuterol Sulfate) 3 Ml Ampul.neb 3 Ml IH QID PRN 06/07/13 Reported Colace (Docusate Sodium) 100 Mg Capsule 100 Mg PO DAILY 06/07/13 Reported Benazepril Hcl 40 Mg Tablet 40 Mg PO DAILY 06/07/[address] chest 1.7 cm parenchymal mass in the left upper lobe suggesting either recurrent or primary neoplastic disease. Small to moderate bilateral pleural effusions some of the right pleural fluid may be loculated. Small amount of abdominal ascites Impression . 1. Acute on chronic respiratory failure, multifactorial in etiology. 2. Acute exacerbation of chronic obstructive pulmonary disease. 3. Acute bronchitis versus pneumonia. 4. ?UTI. 5. Diabetes mellitus. 6. Hypertension. 7. H/O small cell CA s/p XRT, INDIRA 8. New mass in INDIRA, possible recurrence vs new primary Plan . continue antibx will need rad onco consult as OP F/U with me in few months 02 nebs ok with d/c WYATT WALL MD Jul 27, 2016 15:34
--- NOTE | 2016-07-27 22:12 | DS ---
DATE OF DISCHARGE: 07/27/2016 HOSPITAL SUMMARY: An 85-year-old white male with previous lung cancer treated with radiation and oxygen-dependent COPD, came in with increasing shortness of breath. Chest x-ray was unremarkable, but with bibasilar infiltrates. The CT scan raised the question of a new 2- to 3-cm lesion in the left upper lobe, possibly recurrent lung cancer versus scarring. His white count was moderately low, but came in with normal platelets, remained low at 80,000, and rest of the chemistry profile were normal. He has been seen by Dr. Gonsalez and Dr. Peña of Radiation Oncology and will be followed as an outpatient at this point. FINAL DIAGNOSES: 1. Acute bronchitis. 2. Chronic obstructive pulmonary disease, oxygen dependent. 3. History of lung cancer, possibly new lung cancer in the left upper lobe. 4. Pancytopenia, etiology undetermined. OPERATIONS, PROCEDURES, COMPLICATIONS: Dr. Gonsalez and Dr. Peña. DISPOSITION: Multiple myeloma labs are pending. He will follow up in the office after 5 days of Levaquin therapy and he may or may not decide to see radiation oncologist as an outpatient. We will monitor blood levels regarding pancytopenia as he would not tolerate any treatment regarding myeloma if he happens to have this based on screening labs. PROGNOSIS: Guarded. OLLIE ANGELES MD DR: SHEA/markie JOB#: [id number] / [id number]
--- NOTE | 2016-07-28 01:05 | CONS ---
DATE OF CONSULTATION: 07/27/2016 ROOM NO: 550 REFERRING PHYSICIAN: Dr. Mariluz Arellano MD HISTORY OF PRESENT ILLNESS: The patient is known to our Department. He was treated on a palliative basis in the mid 09/2012 for nonsmall cell carcinoma of the lung with a left hilar mass and mediastinal adenopathy. Since the completion of palliative external irradiation delivered with hypofractionation, the patient was last seen in this Department in followup in 12/2013 at which time his disease was stable. The patient is now admitted with a history of shortness of breath, which is increasing a low grade fever he had, and a chest x-ray showing possible right lower lobe pneumonia. The patient is made aware of his past history since he is slightly forgetful and in 2013, he had a bone marrow analysis with a question of multiple myeloma; but there is no definitive finding as yet for multiple myeloma. The patient was sitting comfortably in his room on a chair with 24-hour continuous inhalation of the oxygen at 4 liters. Other than that, he sleeps well. He says he is not a big eater. Bowel sounds are regular. He has no pain anywhere. He has stopped smoking for the last 5 years. PAST MEDICAL HISTORY: As stated above, treated on a palliative basis for a nonsmall cell lung cancer of the left hilum and mediastinal adenopathy which was completed in mid 09/2012 and was last seen in this Department in 11/2013, at which time his CT of the chest was stable. The patient is noted to have diabetes, hypertension, chronic respiratory failure and congestive heart failure. FAMILY HISTORY: Positive for high blood pressure. PERSONAL HISTORY: The patient lives alone. He is able to provide himself and walks around with the help of the walker in the home. Other than that, he reports some weight loss,definitive amount not known. He does feel tired and shortness of breath. He has no drug allergies. He stopped smoking five years ago. Other than that, he had a history of [id number] smoking. PHYSICAL EXAMINATION: GENERAL: On examination, patient is very pleasant, slightly anemic without peripheral adenopathy in the bilateral neck, supraclavicular area or axillary region. VITAL SIGNS: Other than that, as noted in the chart, his O2 saturation with 4 liters of oxygen is 96%. Heart rate, respiratory rate, blood pressure, and temperature are unremarkable and within normal limits. HEENT: Examination of the head and neck reveals no headache, no difficulty in swallowing. No change in the vision or hearing. Oral cavity; oropharynx unremarkable revealing anemic. Pale mucosa. RESPIRATORY SYSTEM: Other than that, the patient is stated above known to have a nonsmall cell carcinoma of the left lung with mediastinal adenopathy, status post palliative irradiation into mid 09/2012. He has had stopped smoking for the past five years. He uses oxygen continuously at home with a 4 liter. Auscultation reveals bibasilar crepitations and slightly reduced air entry posteriorly in the left upper lobe. CARDIOVASCULAR SYSTEM: The patient is noted to have high blood pressure on medication, maintained well. GASTROINTESTINAL: The patient stated that he has been losing a small amount of weight, which as per the patient not significant. No diarrhea or constipation, no abdominal pain and no cramps. No abdominal findings are there. NEUROLOGICAL: Other than that, neurologically the patient is intact. Oximetries are unremarkable. EXTREMITIES: Trace of edema at the ankles bilaterally. DIAGNOSTIC DATA: The patient's recent chest x-ray, which was done on 07/25/2016; detail reveals bilateral opacities, may represent infiltrate or edema or underlying fibrosis is also to be considered. Also, CT scan of the chest done on 07/26/2016 revealed a 1.7 cm parenchymal mass in the left upper lobe suggesting either recurrent or primary lung cancer; [id number] bilateral pleural effusions. IMPRESSION: An 85-year-old gentleman with a known diagnosis of nonsmall cell carcinoma of the lung, status post palliative external irradiation, currently admitted for management of acute exacerbation of the shortness of breath and chronic obstructive pulmonary disease. PLAN: Since the workup is in progress, we would follow the patient with you. Thank you very much for involving us in the care of the patient. MIRNA ALTAMIRANO MD DR: ESTHER/markie JOB#: [id number] / [id number] KIRSTIE
[2016-07-28 19:17] LABS: IMMUNOGLOBULIN A 321 mg/dL (61-437); IMMUNOGLOBULIN G 1018 mg/dL (700-1600); IMMUNOGLOBULIN M 614 mg/dL (15-143)
== END 2016-07-27 19:33 | disposition home or self-care (01) | DRG 180 ==
LOC: ER 12:55 → 5 SOUTH 14:36
PROVIDERS: ADMIT Family Medicine; ATTEND Family Medicine
DX: C34.12 Malignant neoplasm of upper lobe, left bronchus or lung (principal); J18.9 Pneumonia, unspecified organism; J96.21 Acute and chronic respiratory failure with hypoxia; J44.0 Chronic obstructive pulmonary disease with (acute) lower respiratory infection; D61.818 Other pancytopenia; J44.1 Chronic obstructive pulmonary disease with (acute) exacerbation; E44.1 Mild protein-calorie malnutrition; N39.0 Urinary tract infection, site not specified; E11.9 Type 2 diabetes mellitus without complications; I11.0 Hypertensive heart disease with heart failure; I50.9 Heart failure, unspecified; J20.9 Acute bronchitis, unspecified; Z82.49 Family history of ischemic heart disease and other diseases of the circulatory system; Z85.118 Personal history of other malignant neoplasm of bronchus and lung; Z87.891 Personal history of nicotine dependence; Z92.3 Personal history of irradiation; Z99.81 Dependence on supplemental oxygen; R91.8 Other nonspecific abnormal finding of lung field
CPT/HCPCS: 36415; 71010; 71260; 80053; 81001; 82553; 82947; 83036; 83520; 83880; 84484; 85027; 86334; 87040; 93005; 94250; 94640; 94760; 96374; 96375; J0696; J1815; J1956; J2920; J2930; J7042; J7512; J7620; Q9967; 99285-25

== ENCOUNTER 2016-08-11 10:03 | Emergency (ER) | payer MEDICARE ==
[~2016-08-11] VITALS: Ht 165.1 cm; Wt 68.5 kg
[2016-08-11] MEDS ORDERED: ALBUTEROL SULFATE 2.5 MG/3 ML NEBU. NEB ONE (10:30)
[2016-08-11] MEDS ORDERED: IPRATRPIUM/ALBUTEROL 0.5/2.5MG 3 ML NEBU. NEB ONE (10:30)
[2016-08-11 10:34] LABS: BASO % 0 % (0-3); EOS % 1 % (0-3); HEMATOCRIT 29.5 % (39.0-53.0); HEMOGLOBIN 9.9 g/dL (13.0-17.5); LYMPH # 0.3 x10^3/uL (1.0-4.8); LYMPH % 9 % (24-48); MEAN CORPUSCULAR HEMOGLOBIN 29 pg (25-35); MEAN CORPUSCULAR HGB CONC 34 g/dL (31-37); MEAN CORPUSCULAR VOLUME 86 fL (79-100); MONO % 9 % (0-9); NEUT % 81 % (31-73); PLATELET COUNT 91 x10^3/uL (140-400); RED BLOOD COUNT 3.44 x10^6/uL (4.30-5.70); WHITE BLOOD COUNT 3.5 x10^3/uL (4.0-11.0)
[2016-08-11 10:44] LABS: INR 1.1 (0.8-1.1); PROTHROMBIN TIME PATIENT 13.3 SEC (11.7-14.0)
--- NOTE | 2016-08-11 11:03 | PHYS DOC ---
Past Medical History Past Medical History: Cancer, CHF, Diabetes-Type II, Hypertension Past Surgical History: Other Additional Past Surgical Histo: Endoscopy Alcohol Use: None Drug Use: None Adult General Chief Complaint Chief Complaint: SHORTNESS OF BREATH HPI HPI Patient is a 85 year old male who presents with increased shortness of breath. Patient has chronic COPD, wears home oxygen, felt short of breath so he called EMS. Patient has not been using his home nebulizers, he believes that they were working properly although family members disagreed. They state that he has the proper equipment but he is not using it. Patient denies any pain or increased cough, no fevers. He sees Dr. Ollie Holman. Patient refuses to use his Lasix as prescribed because he doesn't like to get up to go to the bathroom so often. Review of Systems Review of Systems Constitutional: Denies fever or chills [] Eyes: Denies change in visual acuity, redness, or eye pain [] HENT: Denies nasal congestion or sore throat [] Respiratory: History of present illness Cardiovascular: denies chest pain GI: Denies abdominal pain, nausea, vomiting, bloody stools or diarrhea [] : Denies dysuria or hematuria [] Musculoskeletal: Denies back pain or joint pain [] Integument: Denies rash or skin lesions [] Neurologic: Denies headache, focal weakness or sensory changes [] Endocrine:reports frequent night urination Current Medications Current Medications Current Medications Medications (Trade) Dose Ordered Sig/David Start Time Stop Time Status Last Admin Dose Admin Albuterol Sulfate (Ventolin Neb Soln) 2.5 mg 1X ONCE 08/11/16 10:30 08/11/16 10:31 DC 08/11/16 10:45 2.5 MG Albuterol/ Ipratropium (Duoneb) 3 ml 1X ONCE 08/11/16 10:30 08/11/16 10:31 DC 08/11/16 10:31 3 ML Allergies Allergies Allergies Coded Allergies Type Severity Reaction Last Updated Verified No Known Drug Allergies 06/07/13 No Physical Exam Physical Exam Constitutional: Well developed, well nourished, no acute distress, non-toxic appearance. [] HENT: Normocephalic, atraumatic, bilateral external ears normal, oropharynx moist, no oral exudates, nose normal. [] Eyes: PERRLA, EOMI, conjunctiva normal, no discharge. [] Neck: Normal range of motion, no tenderness, supple, no stridor. [] Cardiovascular:Heart rate regular rhythm, no murmur [] Lungs & Thorax: Bilateral breath sounds , moderate air movement, no significant wheeze or crackles Abdomen: Bowel sounds normal, soft, no tenderness, no masses, no pulsatile masses. [] Skin: Warm, dry, no erythema, no rash. [] Back: No tenderness, no CVA tenderness. [] Extremities: No tenderness, no cyanosis, no clubbing, ROM intact Neurologic: Alert and oriented X 3, normal motor function, normal sensory function, no focal deficits noted. [] Psychologic: Affect normal, judgement normal, mood normal. [] Current Patient Data Vital Signs Vital Signs Date Time Temp Pulse Resp B/P Pulse Ox O2 Delivery O2 Flow Rate FiO2 08/11/16 13:38 88 24 169/87 98 Nasal Cannula 08/11/16 12:38 2 08/11/16 10:15 98.6 98.6 Lab Values Laboratory Tests Test 08/11/16 10:15 08/11/16 12:37 08/11/16 12:39 08/11/16 12:42 White Blood Count 3.5x10^3/uL (4.0-11.0) L Red Blood Count 3.44x10^6/uL (4.30-5.70) L Hemoglobin 9.9g/dL (13.0-17.5) L Hematocrit 29.5% (39.0-53.0) L Mean Corpuscular Volume 86fL (79-100) Mean Corpuscular Hemoglobin 29pg (25-35) Mean Corpuscular Hemoglobin Concent 34g/dL (31-37) Red Cell Distribution Width 16.0% (11.5-14.5) H Platelet Count 91x10^3/uL (140-400) L Neutrophils (%) (Auto) 81% (31-73) H Lymphocytes (%) (Auto) 9% (24-48) L Monocytes (%) (Auto) 9% (0-9) Eosinophils (%) (Auto) 1% (0-3) Basophils (%) (Auto) 0% (0-3) Neutrophils # (Auto) 2.8x10^3uL (1.8-7.7) Lymphocytes # (Auto) 0.3x10^3/uL (1.0-4.8) L Monocytes # (Auto) 0.3x10^3/uL (0.0-1.1) Eosinophils # (Auto) 0.0x10^3/uL (0.0-0.7) Basophils # (Auto) 0.0x10^3/uL (0.0-0.2) Segmented Neutrophils % 83% (35-66) H Band Neutrophils % 2% (0-9) Lymphocytes % 5% (24-48) L Monocytes % 8% (0-10) Eosinophils % 2% (0-5) Platelet Estimate Decreased (ADEQUATE) Anisocytosis Slight Prothrombin Time 13.3SEC (11.7-14.0) Prothrombin Time INR 1.1 (0.8-1.1) Sodium Level 145mmol/L (136-145) Potassium Level 4.0mmol/L (3.5-5.1) Chloride Level 103mmol/L (98-107) Carbon Dioxide Level 32mmol/L (21-32) Anion Gap 10 (6-14) 20mmol/L (6-14) H Blood Urea Nitrogen 13mg/dL (8-26) Creatinine 1.0mg/dL (0.7-1.3) Estimated GFR (Cockcroft-Gault) 70.8 BUN/Creatinine Ratio 13 (6-20) Glucose Level 94mg/dL (70-99) 92mg/dL (70-99) Calcium Level 8.9mg/dL (8.5-10.1) Magnesium Level 1.7mg/dL (1.8-2.4) L Total Bilirubin 1.7mg/dL (0.2-1.0) H Aspartate Amino Transferase (AST) 31U/L (15-37) Alanine Aminotransferase (ALT) 29U/L (16-63) Alkaline Phosphatase 126U/L (46-116) H Troponin I Quantitative 0.024ng/mL (0.000-0.055) AO-[id number]-Type Natriuretic Peptide 1069pg/mL (0-449) H Total Protein 6.3g/dL (6.4-8.2) L Albumin 2.7g/dL (3.4-5.0) L Albumin/Globulin Ratio 0.8 (1.0-1.7) L POC Troponin I 0.01ng/ml (<0.08) POC Hemoglobin 9.9g/dL (14-18) L POC Hematocrit 29% (37-52) L POC Sodium 140mmol/L (135-145) POC Potassium 4.3mmol/L (3.5-5.0) POC Chloride 98mmol/L (98-110) POC Total CO2 28mmol/L (23-32) POC Blood Urea Nitrogen 12mg/dL (8-26) POC Creatinine 0.9mg/dL (0.5-1.4) POC Ionized Calcium (Latoya) 1.14mmol/L (1.13-1.32) Test 08/11/16 13:23 Urine Collection Type Unknown Urine Color Yellow Urine Clarity Clear Urine pH 8.0 Urine Specific Adrian 1.015 Urine Protein 30mg/dL (NEG-TRACE) Urine Glucose (UA) Negativemg/dL (NEG) Urine Ketones (Stick) 15mg/dL (NEG) Urine Blood Small (NEG) Urine Nitrite Negative (NEG) Urine Bilirubin Negative (NEG) Urine Urobilinogen Dipstick 1.0mg/dL (0.2 mg/dL) Urine Leukocyte Esterase Negative (NEG) Urine RBC 1-2/HPF (0-2) Urine WBC Occ/HPF (0-4) Urine Bacteria 0/HPF (0-FEW) Laboratory Tests 08/11/16 10:15 Laboratory Tests 08/11/16 12:37 08/11/16 12:42 EKG EKG 74 bpm, sinus, rightward axis with a right bundle-branch block, no ST elevation or depression appreciated, nonischemic T waves, interpreted by me [] Radiology/Procedures Radiology/Procedures CXR: Indication shortness of breath. A single view of the chest was obtained and is compared to an examination 07/24/2016. Note is made of a CT examination of the chest 07/26/2016. There are chronic interstitial changes in the lungs similar to the previous exam. The mass in the left upper lobe, demonstrated on CT, is not well represented on plain film. A consolidated pneumonia is not seen. Heart size is unchanged. There is no gross congestive heart failure. IMPRESSION: No acute finding apparent in the chest [] Course & Med Decision Making Course & Med Decision Making Pertinent Labs and Imaging studies reviewed. (See chart for details) Patient given DuoNeb and albuterol breathing treatment. He states he feels much better. Patient appears to be very confused at this home equipment, he is agreeable to discharge at home health returns to evaluate this with him. I had Dav, talked patient, he arranged for them to come tomorrow. Family members also report that they know how to use the equipment and can assist the patient. I spoke with patient's primary care physician to ensure he has close follow-up and let them know that home health will be returning to his home. Dragon Disclaimer Dragon Disclaimer This electronic medical record was generated, in whole or in part, using a voice recognition dictation system. Departure Departure Impression: Primary Impression: COPD exacerbation Disposition: 01 HOME, SELF-CARE Condition: IMPROVED Referrals: OLLIE HOLMAN MD (PCP) CHELSEY RUSH MD August 11, 2016 11:03
--- NOTE | 2016-08-11 11:23 | RAD ---
Indication shortness of breath. A single view of the chest was obtained and is compared to an examination 07/24/2016. Note is made of a CT examination of the chest 07/26/2016. There are chronic interstitial changes in the lungs similar to the previous exam. The mass in the left upper lobe, demonstrated on CT, is not well represented on plain film. A consolidated pneumonia is not seen. Heart size is unchanged. There is no gross congestive heart failure. IMPRESSION: No acute finding apparent in the chest
[2016-08-11 12:34] LABS: % EOS 2 % (0-5); ANISOCYTOSIS SLIGHT; PLT ESTIMATE DECREASED (ADEQUATE)
[2016-08-11 12:47] LABS: POTASSIUM ISTAT 4.3 mmol/L (3.5-5.0)
[2016-08-11 12:53] LABS: CALCIUM 8.9 mg/dL (8.5-10.1); GFR 70.8
[2016-08-11 12:59] LABS: ALBUMIN 2.7 g/dL (3.4-5.0); ALBUMIN/GLOBULIN RATIO 0.8 (1.0-1.7); MAGNESIUM 1.7 mg/dL (1.8-2.4); TOTAL BILIRUBIN 1.7 mg/dL (0.2-1.0); TOTAL PROTEIN 6.3 g/dL (6.4-8.2)
[2016-08-11 13:38] VITALS: BP 169/87
[2016-08-11 13:38] LABS: BILIRUBIN,URINE NEGATIVE (NEG); GLUCOSE,URINE NEGATIVE (NEG); NITRITE,URINE NEGATIVE (NEG); PROTEIN,URINE 30 mg/dL (NEG-TRACE)
[2016-08-11 13:49] LABS: BACTERIA,URINE 0 /HPF (0-FEW); WBC,URINE OCC /HPF (0-4)
--- NOTE | 2016-08-12 12:35 | EKG ---
[facility] [address] [place] [address] Test Date: 2016-08-11 Test Time: 10:11:09 Pat Name: DANIELLE RÍOS Department: Room: Gender: M [employer]: : [id number] Requested By: CHELSEY RUSH Order Number: [id number] Reading MD: Alla Shaver Measurements Intervals [place] Rate: P: FL: QRS: QRSD: T: QT: QTc: Interpretive Statements SINUS RHYTHM PREMATURE ATRIAL CONTRACTIONS RIGHT BUNDLE BRANCH BLOCK. Electronically Signed On 08-12-2016 21:19:11 CDT by Alla Shaver
== END 2016-08-11 14:36 | disposition home or self-care (01) ==
LOC: ER 10:03
DX: J44.1 Chronic obstructive pulmonary disease with (acute) exacerbation (principal); E11.9 Type 2 diabetes mellitus without complications; I11.0 Hypertensive heart disease with heart failure; I50.9 Heart failure, unspecified
CPT/HCPCS: 36415; 71010; 80047; 80053; 81001; 83735; 83880; 84484; 85007; 85027; 85610; 93005; 94640; 99285; J7620

== ENCOUNTER 2017-06-27 00:47 | Inpatient (IN) | payer MEDICARE ==
[2017-06-27 01:19] LABS: BASO % 0 % (0-3); EOS % 5 % (0-3); HEMATOCRIT 29.8 % (39.0-53.0); HEMOGLOBIN 9.4 g/dL (13.0-17.5); LYMPH % 9 % (24-48); MEAN CORPUSCULAR HEMOGLOBIN 28 pg (25-35); MEAN CORPUSCULAR HGB CONC 32 g/dL (31-37); MEAN CORPUSCULAR VOLUME 90 fL (79-100); MONO % 11 % (0-9); NEUT # 2.3 x10^3uL (1.8-7.7); NEUT % 75 % (31-73); PLATELET COUNT 62 x10^3/uL (140-400); RED BLOOD COUNT 3.32 x10^6/uL (4.30-5.70); RED CELL DISTRIBUTION WIDTH 17.6 % (11.5-14.5); WHITE BLOOD COUNT 3.1 x10^3/uL (4.0-11.0)
[2017-06-27 01:20] LABS: ADD MAN DIFF? YES; EOS # 0.1 x10^3/uL (0.0-0.7); LYMPH # 0.3 x10^3/uL (1.0-4.8); MONO # 0.3 x10^3/uL (0.0-1.1)
[2017-06-27] MEDS: IPRATRPIUM/ALBUTEROL 0.5/2.5MG 3 ML NEBU. NEB ×7 (01:26→19:21)
[2017-06-27] MEDS: methylPREDNISolone SOD SUCC PF 125 MG/2 ML VIAL. IV (01:38)
[2017-06-27 01:40] LABS: BLOOD UREA NITROGEN 13 mg/dL (8-26); BUN/CREATININE RATIO 13 (6-20); CALCIUM 9.1 mg/dL (8.5-10.1); GFR 70.7; GLUCOSE 113 mg/dL (70-99); SODIUM 147 mmol/L (136-145)
[2017-06-27 01:45] LABS: ALBUMIN 2.8 g/dL (3.4-5.0); ALBUMIN/GLOBULIN RATIO 0.7 (1.0-1.7); ALK PHOS 124 U/L (46-116); ALT (SGPT) 10 U/L (16-63); AST (SGOT) 29 U/L (15-37); TOTAL BILIRUBIN 1.1 mg/dL (0.2-1.0); TOTAL PROTEIN 6.6 g/dL (6.4-8.2)
[2017-06-27 01:46] LABS: ANION GAP 2 (6-14); CARBON DIOXIDE 38 mmol/L (21-32); CHLORIDE 107 mmol/L (98-107)
[2017-06-27 01:50] LABS: NT-PRO BNP 972 pg/mL (0-449)
[2017-06-27 01:51] LABS: TROPONINI < 0.017 ng/mL (0.000-0.055)
[2017-06-27] MEDS ORDERED: ACETAMINOPHEN 325 MG TABLET. PO (03:30)
[2017-06-27] MEDS ORDERED: ONDANSETRON PF 4 MG/2 ML VIAL. IV ×2 (03:30→09:30)
[2017-06-27 07:29] LABS: TROPONINI < 0.017 ng/mL (0.000-0.055)
[2017-06-27 08:23] LABS: POC GLUCOSE 169 mg/dL (70-99)
[2017-06-27] MEDS ORDERED: hydrOXYzine PAMOATE 25 MG CAPSULE PO (09:30)
[2017-06-27] MEDS ORDERED: guaiFENesin DM 200MG/20MG 10 ML SYRUP PO (09:30)
[2017-06-27] MEDS ORDERED: ALBUTEROL SULFATE 2.5 MG/3 ML NEBU. NEB (09:45)
[2017-06-27 10:05] LABS: TROPONINI < 0.017 ng/mL (0.000-0.055)
[2017-06-27] MEDS: TAMSULOSIN 0.4 MG CAP.ER.24H. PO (10:16)
[2017-06-27] MEDS: METOPROLOL SUCC 24HR ER 100 MG TAB.ER.24H. PO (10:17)
[2017-06-27] MEDS: GLIMEPIRIDE 2 MG TABLET. PO (10:17)
[2017-06-27] MEDS: GABAPENTIN 300 MG CAPSULE. PO ×3 (10:18→21:07)
[2017-06-27] MEDS: LISINOPRIL 20 MG TABLET PO (10:20)
[2017-06-27] MEDS: ENOXAPARIN 40 MG/0.4 ML SYRINGE. SQ (10:21)
[2017-06-27 11:41] LABS: POC GLUCOSE 221 mg/dL (70-99)
[2017-06-27] MEDS: INSULIN ASPART 300 UNITS/3 ML INSULN.PEN SQ ×2 (12:00→17:00)
[2017-06-27] MEDS: HALOPERIDOL 2 MG TABLET. PO ×2 (12:10→23:26)
[2017-06-27 17:13] LABS: POC GLUCOSE 61 mg/dL (70-99)
[2017-06-27 20:43] LABS: POC GLUCOSE 84 mg/dL (70-99)
[2017-06-27] MEDS: ATORVASTATIN CALCIUM 10 MG TABLET. PO (21:07)
[2017-06-28] MEDS: INSULIN ASPART 300 UNITS/3 ML INSULN.PEN SQ ×3 (08:00→16:48)
[2017-06-28 08:15] LABS: POC GLUCOSE 75 mg/dL (70-99)
[2017-06-28] MEDS: IPRATRPIUM/ALBUTEROL 0.5/2.5MG 3 ML NEBU. NEB ×4 (08:35→20:51)
[2017-06-28] MEDS ORDERED: hydrALAZINE 20 MG/ML VIAL. IVP (09:15)
[2017-06-28] MEDS: LISINOPRIL 20 MG TABLET PO (09:19)
[2017-06-28] MEDS: GABAPENTIN 300 MG CAPSULE. PO ×3 (09:19→20:27)
[2017-06-28] MEDS: METOPROLOL SUCC 24HR ER 100 MG TAB.ER.24H. PO (09:19)
[2017-06-28] MEDS: DOCUSATE SODIUM 100 MG CAPSULE. PO (09:19)
[2017-06-28] MEDS: TAMSULOSIN 0.4 MG CAP.ER.24H. PO (09:19)
[2017-06-28] MEDS: GLIMEPIRIDE 2 MG TABLET. PO (09:19)
[2017-06-28] MEDS: ENOXAPARIN 40 MG/0.4 ML SYRINGE. SQ (09:20)
[2017-06-28] MEDS ORDERED: SODIUM CHLORIDE 0.65% NASAL SPRAY 45ML BOTTLE. NS (09:30)
[2017-06-28 16:27] LABS: POC GLUCOSE 54 mg/dL (70-99)
[2017-06-28 16:41] LABS: POC GLUCOSE 90 mg/dL (70-99)
[2017-06-28] MEDS: ATORVASTATIN CALCIUM 10 MG TABLET. PO (20:27)
[2017-06-28 20:42] LABS: POC GLUCOSE 54 mg/dL (70-99)
[2017-06-28 21:03] LABS: POC GLUCOSE 59 mg/dL (70-99)
[2017-06-28 21:27] LABS: POC GLUCOSE 62 mg/dL (70-99)
[2017-06-28] MEDS: DEXTROSE 50% 25 GM / 50ML DISP.SYRIN. IV (21:28)
[2017-06-28 21:53] LABS: POC GLUCOSE 148 mg/dL (70-99)
[2017-06-29 02:09] LABS: POC GLUCOSE 53 mg/dL (70-99)
[2017-06-29] MEDS: DEXTROSE 50% 25 GM / 50ML DISP.SYRIN. IV ×2 (02:13→08:32)
[2017-06-29 02:31] LABS: POC GLUCOSE 152 mg/dL (70-99)
[2017-06-29] MEDS: INSULIN ASPART 300 UNITS/3 ML INSULN.PEN SQ (08:00)
[2017-06-29] MEDS: IPRATRPIUM/ALBUTEROL 0.5/2.5MG 3 ML NEBU. NEB ×4 (08:20→20:34)
[2017-06-29 08:25] LABS: POC GLUCOSE 56 mg/dL (70-99)
[2017-06-29] MEDS: GLIMEPIRIDE 2 MG TABLET. PO (08:36)
[2017-06-29] MEDS: LISINOPRIL 20 MG TABLET PO (08:37)
[2017-06-29] MEDS: DOCUSATE SODIUM 100 MG CAPSULE. PO (08:38)
[2017-06-29] MEDS: METOPROLOL SUCC 24HR ER 100 MG TAB.ER.24H. PO (08:38)
[2017-06-29] MEDS: TAMSULOSIN 0.4 MG CAP.ER.24H. PO (08:38)
[2017-06-29] MEDS: GABAPENTIN 300 MG CAPSULE. PO ×3 (08:38→20:31)
[2017-06-29 09:02] LABS: POC GLUCOSE 131 mg/dL (70-99)
[2017-06-29 09:30] LABS: GLUCOSE 118 mg/dL (70-99)
[2017-06-29] MEDS: ENOXAPARIN 40 MG/0.4 ML SYRINGE. SQ (09:44)
[2017-06-29 11:56] LABS: POC GLUCOSE 82 mg/dL (70-99)
[2017-06-29 17:16] LABS: POC GLUCOSE 89 mg/dL (70-99)
[2017-06-29 20:25] LABS: POC GLUCOSE 133 mg/dL (70-99)
[2017-06-29] MEDS: ATORVASTATIN CALCIUM 10 MG TABLET. PO (20:31)
[2017-06-30] MEDS: IPRATRPIUM/ALBUTEROL 0.5/2.5MG 3 ML NEBU. NEB ×4 (07:12→19:27)
[2017-06-30 07:38] LABS: POC GLUCOSE 98 mg/dL (70-99)
[2017-06-30] MEDS: METOPROLOL SUCC 24HR ER 100 MG TAB.ER.24H. PO (09:09)
[2017-06-30] MEDS: TAMSULOSIN 0.4 MG CAP.ER.24H. PO (09:10)
[2017-06-30] MEDS: GABAPENTIN 300 MG CAPSULE. PO ×3 (09:10→21:00)
[2017-06-30] MEDS: LISINOPRIL 20 MG TABLET PO (09:10)
[2017-06-30] MEDS: DOCUSATE SODIUM 100 MG CAPSULE. PO (09:10)
[2017-06-30] MEDS: ENOXAPARIN 40 MG/0.4 ML SYRINGE. SQ (09:22)
[2017-06-30 11:48] LABS: POC GLUCOSE 120 mg/dL (70-99)
[2017-06-30 15:34] LABS: POC GLUCOSE 206 mg/dL (70-99)
[2017-06-30 20:36] LABS: POC GLUCOSE 123 mg/dL (70-99)
[2017-06-30] MEDS: ATORVASTATIN CALCIUM 10 MG TABLET. PO (21:00)
[2017-07-01 04:54] LABS: ADD MAN DIFF? NO
[2017-07-01 05:06] LABS: BASO % 0 % (0-3); EOS # 0.2 x10^3/uL (0.0-0.7); EOS % 5 % (0-3); HEMATOCRIT 27.8 % (39.0-53.0); HEMOGLOBIN 8.9 g/dL (13.0-17.5); LYMPH # 0.4 x10^3/uL (1.0-4.8); LYMPH % 9 % (24-48); MEAN CORPUSCULAR HEMOGLOBIN 28 pg (25-35); MEAN CORPUSCULAR HGB CONC 32 g/dL (31-37); MEAN CORPUSCULAR VOLUME 89 fL (79-100); MONO # 0.3 x10^3/uL (0.0-1.1); MONO % 8 % (0-9); NEUT % 78 % (31-73); PLATELET COUNT 62 x10^3/uL (140-400); RED BLOOD COUNT 3.14 x10^6/uL (4.30-5.70); WHITE BLOOD COUNT 3.9 x10^3/uL (4.0-11.0)
[2017-07-01 05:34] LABS: ALBUMIN 2.4 g/dL (3.4-5.0); ALBUMIN/GLOBULIN RATIO 0.6 (1.0-1.7); ALK PHOS 112 U/L (46-116); ALT (SGPT) 28 U/L (16-63); ANION GAP 2 (6-14); AST (SGOT) 31 U/L (15-37); BLOOD UREA NITROGEN 22 mg/dL (8-26); BUN/CREATININE RATIO 20 (6-20); CALCIUM 8.6 mg/dL (8.5-10.1); CARBON DIOXIDE 35 mmol/L (21-32); CHLORIDE 105 mmol/L (98-107); CREATININE 1.1 mg/dL (0.7-1.3); GFR 63.3; GLUCOSE 84 mg/dL (70-99); POTASSIUM 4.8 mmol/L (3.5-5.1); SODIUM 142 mmol/L (136-145); TOTAL BILIRUBIN 0.7 mg/dL (0.2-1.0); TOTAL PROTEIN 6.4 g/dL (6.4-8.2)
[2017-07-01] MEDS: IPRATRPIUM/ALBUTEROL 0.5/2.5MG 3 ML NEBU. NEB ×3 (07:47→15:15)
[2017-07-01 07:57] LABS: POC GLUCOSE 92 mg/dL (70-99)
[2017-07-01] MEDS: DOCUSATE SODIUM 100 MG CAPSULE. PO (09:03)
[2017-07-01] MEDS: TAMSULOSIN 0.4 MG CAP.ER.24H. PO (09:04)
[2017-07-01] MEDS: GABAPENTIN 300 MG CAPSULE. PO ×2 (09:04→13:31)
[2017-07-01] MEDS: LISINOPRIL 20 MG TABLET PO (09:05)
[2017-07-01] MEDS: METOPROLOL SUCC 24HR ER 100 MG TAB.ER.24H. PO (09:05)
[2017-07-01] MEDS: ENOXAPARIN 40 MG/0.4 ML SYRINGE. SQ (09:06)
[2017-07-01 11:38] LABS: POC GLUCOSE 102 mg/dL (70-99)
== END 2017-07-01 15:25 | disposition home health service (06) | DRG 189 ==
LOC: ER 00:47 → 5 NORTH 02:24
PROVIDERS: Internal Medicine
DX: J96.21 Acute and chronic respiratory failure with hypoxia (principal); G93.41 Metabolic encephalopathy; E11.649 Type 2 diabetes mellitus with hypoglycemia without coma; J44.0 Chronic obstructive pulmonary disease with (acute) lower respiratory infection; C34.90 Malignant neoplasm of unspecified part of unspecified bronchus or lung; I11.0 Hypertensive heart disease with heart failure; I50.9 Heart failure, unspecified; D63.0 Anemia in neoplastic disease; E78.5 Hyperlipidemia, unspecified; J44.1 Chronic obstructive pulmonary disease with (acute) exacerbation; J20.9 Acute bronchitis, unspecified; F03.90 Unspecified dementia, unspecified severity, without behavioral disturbance, psychotic disturbance, mood disturbance, and anxiety; F17.200 Nicotine dependence, unspecified, uncomplicated; Z85.118 Personal history of other malignant neoplasm of bronchus and lung; Z91.81 History of falling; Z92.3 Personal history of irradiation
CPT/HCPCS: 36415; 71045; 71250; 80053; 82947; 82962; 83880; 84484; 85025; 93005; 93971; 94640; 94760; 96374; 97116-GP; 97161-GP; 97165-GO; 97530-GO; 97535-GO; 99291; 99291-25; J1650; J1815; J2930; J7042; J7620